=== PATIENT | female | born 1970 | race African-American/Black ===

== ENCOUNTER 2023-12-31 09:27 | Day surgery (SDC) | payer MEDICARE ==
[2023-12-31] MEDS ORDERED: BUPIVACAINE 0.5% VIAL IJ ONE (09:28)
[2023-12-31] MEDS ORDERED: Depo-Medrol 40 MG/ML IM ONE (09:28)
[2023-12-31] MEDS ORDERED: DIPRIVAN 200 MG/20 ML IV ONE (11:15)
--- NOTE | 2023-12-31 11:55 | XRAY ---
Indication: Left knee injection. Intraoperative fluoroscopy provided for 7 seconds. Single digital spot image submitted for interpretation demonstrates needle to project over the left femur intracondylar notch. Small amount of contrast injected for needle tip placement. Correlate with intraoperative findings/report.
--- NOTE | 2023-12-31 11:55 | XRAY ---
Indication: Right knee injection. Intraoperative fluoroscopy provided for 6 seconds. Single digital spot image submitted for interpretation demonstrates needle to project over the right femur intracondylar notch. Small amount of contrast injected for needle tip placement. Correlate with intraoperative findings/report.
--- NOTE | 2023-12-31 13:39 | XRAY ---
7 seconds of fluoroscopy was used in surgery for a left intra-articular knee injection.
--- NOTE | 2023-12-31 13:40 | XRAY ---
6 seconds of fluoroscopy was used in surgery for a right intra-articular knee injection.
[2023-12-31] MEDS ORDERED: Lactated Ringers 1,000 ML IV ONE (15:00)
== END 2023-12-31 11:47 ==
LOC: SDC-PAIN 09:27
PROVIDERS: ATTEND Psychiatry & Neurology Pain Medicine
DX: M17.0 Bilateral primary osteoarthritis of knee (principal); R73.03 Prediabetes
CPT/HCPCS: 20610; 73560; 77002; 82947; J2704; Q9966

== ENCOUNTER 2025-02-16 13:51 | Day surgery (SDC) | payer MEDICARE ==
[2025-02-16] MEDS ORDERED: methylPREDNISolone acetate IM ONE (13:52)
[2025-02-16] MEDS ORDERED: LIDOCAINE HCL 2% 100 MG/5 ML IJ ONE (13:52)
[2025-02-16] MEDS ORDERED: Versed 2 MG/2 ML Injection ONE (14:45)
[2025-02-16] MEDS ORDERED: Zofran 4 MG/2 ML VIAL ONE (14:52)
[2025-02-16] MEDS ORDERED: propofoL IV ONE (15:31)
[2025-02-16] MEDS ORDERED: Lactated Ringers 1,000 ML IV ONE (16:22)
--- NOTE | 2025-02-16 19:14 | XRAY ---
Indication: Bilateral L4-S1 MBB. Intraoperative fluoroscopy provided for 15 seconds. Single digital spot image submitted for interpretation demonstrates posterior needle tips projecting over expected left and right L4-S1 nerve roots. Correlate with intraoperative findings/report. Incidental L4-L5 spinous process fusion hardware
--- NOTE | 2025-02-16 19:37 | XRAY ---
15 seconds of fluoroscopy was used in surgery for a bilateral L4-S1 MBB.
== END 2025-02-16 16:00 | disposition home or self-care (01) ==
LOC: SDC-PAIN 13:51
PROVIDERS: ATTEND Psychiatry & Neurology Pain Medicine
DX: M47.817 Spondylosis without myelopathy or radiculopathy, lumbosacral region (principal); R73.03 Prediabetes

== ENCOUNTER 2025-03-16 12:15 | Day surgery (SDC) | payer MEDICARE ==
[2025-03-16] MEDS ORDERED: Versed 2 MG/2 ML Injection IV ONE (12:16)
[2025-03-16] MEDS ORDERED: propofoL IV ONE (14:21)
[2025-03-16] MEDS ORDERED: ROBINUL ONE (14:37)
[2025-03-16] MEDS ORDERED: TRANDATE 20 MG/4 ML SYRINGE IV ONE (14:56)
[2025-03-16] MEDS ORDERED: APRESOLINE 20 MG/ML INJ ONE (15:02)
--- NOTE | 2025-03-16 16:59 | XRAY ---
3 seconds of fluoroscopy was used in surgery for an attempted bilateral L4-S1 MBB. Procedure was aborted due to patient's condition.
[2025-03-16] MEDS ORDERED: Lactated Ringers 1,000 ML IV ONE (17:13)
== END 2025-03-16 15:25 | disposition home or self-care (01) ==
LOC: SDC-PAIN 12:15
PROVIDERS: ATTEND Psychiatry & Neurology Pain Medicine
DX: M47.817 Spondylosis without myelopathy or radiculopathy, lumbosacral region (principal); Z53.8 Procedure and treatment not carried out for other reasons